=== PATIENT | female | born 1965 | race African-American/Black ===

== ENCOUNTER 2018-01-17 21:02 | Emergency (ER) | payer OTHER ==
[~2018-01-17] VITALS: Ht 167.6 cm; Wt 92.1 kg
[2018-01-17 22:04] VITALS: BP 138/92
--- NOTE | 2018-01-17 22:22 | Diagnostic Imaging Report ---
FOOT RIGHT COMPLETE HISTORY: Right foot pain after trauma COMPARISON: None FINDINGS: Bones: Acute, oblique, minimally displaced fracture of the distal right fifth metatarsal diaphysis Osseous alignment is within normal limits. Joints: The joint spaces are well-maintained. Soft tissues: Mild soft tissue edema around the lateral mid and forefoot IMPRESSION: Acute, minimally displaced oblique fracture of the distal right fifth metatarsal bone Signed by: Dr. Chace Garcia M.D. on 01/17/2018 10:18 PM
== END 2018-01-17 22:37 | disposition home or self-care (01) ==
LOC: ER 21:02
DX: S92.351A Displaced fracture of fifth metatarsal bone, right foot, initial encounter for closed fracture (principal); W23.0XXA Caught, crushed, jammed, or pinched between moving objects, initial encounter; Y93.89 Activity, other specified; Y99.0 Civilian activity done for income or pay
CPT/HCPCS: 99283